=== PATIENT | male | born 1970 | race Caucasian/White ===

== ENCOUNTER 2021-12-04 14:13 | Emergency (ER) | payer SELFPAY ==
[~2021-12-04] VITALS: Ht 172.7 cm; Wt 83.9 kg
[2021-12-04 14:52] VITALS: BP 133/82
--- NOTE | 2021-12-04 15:13 | NUR ---
SEEN AND EXAMINED BY KRISS MELTON
--- NOTE | 2021-12-04 15:24 | NUR ---
[employer] AT BEDSIDE FOR XRAY.
[2021-12-04] MEDS ORDERED: IBUPROFEN 600 MG TABLET PO ONE (15:30)
[2021-12-04] MEDS ORDERED: IBUPROFEN 600 MG TABLET ONE (15:57)
--- NOTE | 2021-12-04 16:47 | NUR ---
[facility]AD[facility] CALLED FOR X-ADIEL READING
--- NOTE | 2021-12-04 17:00 | NUR ---
SHMUEL BHAGAT AT BEDSIDE FOR APPLICATION ORTHO SHOE.
--- NOTE | 2021-12-04 17:12 | NUR ---
Patient discharged to home in stable condition. Written and verbal after care instructions given. Patient verbalizes understanding of instruction.
[2021-12-05] MEDS ORDERED: CYCL5TAB PO (10:15)
[2021-12-05] MEDS ORDERED: IBUP-1957 PO (10:15)
== END 2021-12-04 17:13 | disposition home or self-care (01) ==
LOC: ER 15:34
DX: M79.671 Pain in right foot (principal)
CPT/HCPCS: 73630-TC

== ENCOUNTER 2021-12-05 08:53 | Emergency (ER) | payer SELFPAY ==
[~2021-12-05] VITALS: Ht 175.3 cm; Wt 83.9 kg
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
--- NOTE | 2021-12-05 09:25 | NUR ---
SEEN AND EXAMINED BY .
[2021-12-05] MEDS ORDERED: HYDROCODONE/APAP 5/325MG TABLET PO ONE (09:30)
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
[2021-12-05] MEDS ORDERED: HYDROCODONE/APAP 5/325MG TABLET ONE (09:35)
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
[2021-12-05] MEDS ORDERED: CYCL5TAB PO (10:15)
[2021-12-05] MEDS ORDERED: IBUP-1957 PO (10:15)
--- NOTE | 2021-12-05 10:57 | NUR ---
CALLED ORTHO DR. BURDEN.
--- NOTE | 2021-12-05 11:20 | NUR ---
[facility] AT BEDSIDE, [id number]. OFFICER [place]ONATH[place] [id number] [address] [id number].
--- NOTE | 2021-12-05 11:20 | NUR ---
[employer] AT BEDSIDE.
--- NOTE | 2021-12-05 12:32 | NUR ---
Patient discharged to home in stable condition. Written and verbal after care instructions given. Patient verbalizes understanding of instruction.
[2021-12-05 12:48] VITALS: BP 139/90
== END 2021-12-05 12:34 | disposition home or self-care (01) ==
LOC: ER 09:08
DX: S93.324A Dislocation of tarsometatarsal joint of right foot, initial encounter (principal); S00.93XA Contusion of unspecified part of head, initial encounter; S00.11XA Contusion of right eyelid and periocular area, initial encounter; M79.671 Pain in right foot; Y08.89XA Assault by other specified means, initial encounter; Y93.89 Activity, other specified; Y92.89 Other specified places as the place of occurrence of the external cause; Y99.8 Other external cause status
CPT/HCPCS: 70450-TC; 70486-TC; 71045-TC; 72125-TC; 72128-TC